=== PATIENT | female | born 1965 | race Caucasian/White ===

== ENCOUNTER 2020-09-26 11:30 | Outpatient (REF) | payer BC, SELFPAY | END 2020-09-26 11:31 | disposition home or self-care (01) | LOC: HO.WFDLDS 11:30 | PROVIDERS: Visit Provider Internal Medicine | DX: Z20.828 Contact with and (suspected) exposure to other viral communicable diseases (principal) | CPT/HCPCS: C9803; U0003 ==

== ENCOUNTER 2020-12-28 11:10 | Emergency (ER) | payer OTHER, BC, SELFPAY ==
[2020-12-28 11:51] VITALS: BP 129/75; PULSE 91; RESP 16; TEMP 36.5; O2SAT 97; BMI 29.0
--- NOTE | 2020-12-28 12:08 | ED_ITS ---
HPI - Back Pain/Injury General Chief Complaint: Back Pain/Injury Stated Complaint: back pain Time Seen by Provider: 12/28/20 11:41 Source: patient Mode of arrival: ambulatory Limitations: no limitations History of Present Illness HPI Narrative: 55 y/o female with history of chronic low back pain on chronic opiates, s/p multiple back surgeries who presents to the ER today from home with worsening low back pain for the last 1 week. She states she usually has pain on left lower back and down her left leg but it started radiating to the right buttocks. She denies injury or trauma. She is chronically on Vicoden and OxyContin. She last took her Vicoden this morning but did not take her OxyContin yet today. She is managed by her PCP and she has gotten her back surgeries in [place]. She denies urinary incontinence, saddle parestheias, LE weakness or fevers. She is able to walk with a slow but steady gait. MD elicited complaint: back pain Pertinent past history: prior back pain Onset (ago): week(s) (1) Timing: constant Severity: severe Similar Symptoms Previously: Yes Quality: sharp, aching, spasming and throbbing Location: right lower back and left lower back Radiation: left upper leg Exacerbating factors: movement and walking Relieving factors: none Context: while lifting (5 years ago at work) Associated symptoms: denies other symptoms Treatments prior to arrival: prescription analgesics Work related injury: Yes Related Data Previous Rx's Medication Instructions Recorded cyclobenzaprine 10 mg PO TID PRN #15 tab 12/28/20 lidocaine [Lidoderm] 1 patch TOPICAL DAILY #15 ea 12/28/20 prednisone 40 mg PO DAILY #10 tab 12/28/20 Allergies Allergy/AdvReac Type Severity Reaction Status Date / Time prednisone [PREDNISONE] AdvReac Unknown CIRCULATION Unverified 06/16/20 17:05 ISSUE. Review of Systems Review of Systems: Constitutional: No Fever, No Chills Cardiovascular: No Chest Pain, No SOB Respiratory: No Cough, No Sputum Gastrointestinal: No Nausea, No Vomiting, No abdominal Pain Genitourinary: No Dysuria, No Urinary Frequency, No Hematuria Musculoskeletal: + joint pain, + Myalgias Skin: No Skin Lesions, No rash Neuro: No Weakness, No Numbness, No Dizziness, No Headache PMFSH Past Medical History Attestation statement: The following information was validated with the patient. Medical History Anxiety HTN (hypertension) Surgical History (Updated 12/28/20 @ 12:00 by Bea Santana) Previous back surgery Social History Social History Smoking Status: Current every day smoker Smoked in Last 30 Days: Yes Use of substances other than those prescribed or required for medical reasons: No Advance Directives: Yes Advance Directives Information Provided: Yes Advance Directives on File: No Physical Exam Vital Signs: Vital Signs: Last Vital Signs Temp 97.7 F 12/28/20 11:51 Pulse 91 12/28/20 11:51 Resp 16 12/28/20 11:51 BP 129/75 12/28/20 11:51 Pulse Ox 97 12/28/20 11:51 Body Mass Index 29.0 Appearance: Alert. Oriented X3. Appears mildly uncomfortable. HEENT: normal inspection CVS: Normal heart rate and rhythm. Pulses normal. Respiratory: No respiratory distress. Skin: Skin warm and dry. Normal skin color. Normal skin turgor. No rashes. Extremities: atraumatic, no edema Back: left lower lumbar and right lower lumbar areas with soft tissue tenderness, +SI joint tenderness on the left. no spinal tenderness, well healed surgical scar noted. Neuro: Oriented X 3. No motor deficit. No sensory deficit. Slow but steady gait. DTR's intact bilaterally. Course Course Course Narrative: 55 y/o female presenting with acute on chronic low back pain without recent injury. She has no red flag symptoms of LBP at this time. She has not been able to go to PT due to COVID which was previously very helpful for her to prevent recurrent flares. Will start trial of muscle relaxers and steroids. No need for emergent imaging. She will follow up with her PCP. She is ambulating with a steady gait. She is stable for discharge. Discharge Plan Discharge Clinical Impression: Lumbar radiculopathy Patient Disposition: Home, Self-Care Instructions: Lumbar Radiculopathy (ED), Lower Back Exercises (ED) Additional Instructions: No bending, lifting or twisting. Rest. Use ice several times per day for 20 minutes at a time for the next 48 hours and then change to heat. Take medications as prescribed to help with pain and discomfort. Start the prednisone medication tomorrow - you were given the 1st dose in the ER today. Follow up with your Primary Care Doctor this week. If your pain worsens despite new medications or, if you develop new numbness, tingling, weakness, loss of function or incontinence call 911 or come back to the ER right away for evaluation. Prescriptions: New cyclobenzaprine 10 mg tablet 10 mg PO TID PRN (Reason: muscle spasm) Qty: 15 RF: 0 prednisone 20 mg tablet 40 mg PO DAILY Qty: 10 RF: 0 lidocaine [Lidoderm] 5 % adhesive patch,medicated 1 patch topical DAILY Qty: 15 RF: 0 Interventions: ED Discharge Assessment Last Done: 12/28/20 12:28 Discharge Date/Time: 12/28/20 12:28
[2020-12-28] MEDS: Acetaminophen 325 MG TABLET 975 MG PO (12:20)
[2020-12-28] MEDS: predniSONE 20 MG TABLET 60 MG PO (12:20)
[2020-12-28] MEDS: Ketorolac Tromethamine 60 MG/2 ML VIAL IM (12:21)
== END 2020-12-28 12:28 | disposition home or self-care (01) ==
PROVIDERS: Emergency Provider Emergency Medicine; PCP Physician Assistant Medical
DX: M54.16 Radiculopathy, lumbar region (principal); F17.200 Nicotine dependence, unspecified, uncomplicated; Z71.6 Tobacco abuse counseling; Z79.899 Other long term (current) drug therapy
CPT/HCPCS: 96372; 99283; 99284; J1885

== ENCOUNTER → 2022-01-01 13:31 | Outpatient (BNVA) | payer BC, SELFPAY | PROVIDERS: Visit Provider Internal Medicine Cardiovascular Disease | DX: R07.89 Other chest pain (principal); R00.2 Palpitations; I10 Essential (primary) hypertension | CPT/HCPCS: 93005; 99202 ==

== ENCOUNTER → 2022-01-23 11:03 | Outpatient (REF) | payer BC, SELFPAY ==
--- NOTE | 2022-01-23 11:06 | HM_ITS ---
Conclusion: 1. Patient was monitored for total period of 14 days 2. Baseline rhythm was normal sinus rhythm with average heart of 80 beats per minute 3. No significant pauses or bradycardia noted 4. Very rare ectopy is noted 5. Two brief episode of SVT longest lasting 6 beats 6. No patient reported events MTDD
== END ==
LOC: HO.CARD 11:03
PROVIDERS: PCP Physician Assistant Medical; Visit Provider Internal Medicine Cardiovascular Disease
DX: R00.2 Palpitations (principal); R07.9 Chest pain, unspecified
CPT/HCPCS: 93246

== ENCOUNTER → 2022-03-07 12:59 | Outpatient (REF) | payer BC, SELFPAY ==
--- NOTE | 2022-03-07 13:02 | CA_ITS ---
Transthoracic Echocardiogram Patient (Last, First, Middle): Meggan Haas, Gender: Female Date of : 1965 Age: 56 Procedure Date: 03/07/2022 Procedure Type: Transthoracic Echocardiogram Location: OP Height: 170.18 cm Weight: 83.92 kg BSA: 1.96 m2 Heart Rate: bpm BP: 148 / 82 mmHg Staff Internist Office Based Only: SB Referring MD: Cesar Hanks MD Symptoms: I10 - Essential (primary) hypertension Study Quality: Adequate ECG Rhythm: Sinus Conclusions: - The left ventricular systolic function is normal. The calculated ejection fraction is 57% by biplane method. - No obvious valvular pathology seen on this study. Findings Left Ventricle Normal left ventricular cavity size. The left ventricular systolic function is normal. The calculated ejection fraction is 57% by biplane method. There is no evidence of regional wall motion abnormalities. Diastolic function is normal for age. There is mild septal asymmetric hypertrophy. Right Ventricle Normal right ventricular cavity size and systolic function. Atria Both atria are normal in size. Aortic Valve There is a normal trileaflet aortic valve. There is no aortic valve stenosis. There is no aortic valve regurgitation. Mitral Valve The mitral valve appears normal. There is no mitral valve regurgitation. There is no mitral valve stenosis. Pulmonic Valve The pulmonic valve is likely normal. Tricuspid Valve Normal tricuspid valve structure. There is no tricuspid valve regurgitation. Tricuspid regurgitation envelope is inadequate for calculation of right ventricular systolic pressure. Great Vessels The aortic annulus, sinuses of valsalva, asc aorta, and aortic arch are normal in size. Venous The inferior vena cava is normal in size and collapses greater than 50% with inspiration. Pericardium/Pleural There is no evidence of pericardial effusion. Prior Study Comparison No prior study available for comparison. Recommendations, Care & Conclusions No obvious valvular pathology seen on this study. Measurements 2D Linear Measurements IVSd: 1.18 0.6-0.9/0.6-1.0 cm LVIDd: 3.82 3.9-5.3/4.2-5.9 cm LVIDd Index: 1.95 2.4-3.2/2.2-3.1 cm/m2 LVIDs: 2.73 2.0-3.6 cm LVPWd: 1.00 0.7-1.1 cm LA Diam: 2.70 2.7-3.8/3.0-4.0 cm LAIDs Index: 1.38 1.5-2.3 cm/m2 LV Mass: 166.11 67-162/88-224 g LV Mass Index: 84.75 43-95/49-115 g/m2 LVOT Diam: 1.80 3.0+(-)1.3 cm 2D Systolic Function EF 4C: 54.20 >55% EF 2C: 61.00 >55% EF BiP: 56.80 >55% Mitral Valve MV Pk E: 0.62 MV PK A: 0.67 MV Decel Time: 181.00 E/A: 0.90 E'Lateral: 10.30 E'Medial: 6.96 E/E' Med: 8.90 E/E' Lat: 6.00 PHT: 53.00 MVA PHT: 4.15 Decel Navarro: 3.44 Aortic Valve AoV Pk Jamari: 1.16 AoV Mn Jamari: 0.91 AoV VTI: 0.27 AoV Pk Grad: 5.00 Aov Mn Grad: 4.00 WINTER Cont.VTI: 1.79 LVOT LVOT Pk Jamari: 0.93 LVOT Mn Jamari: 0.65 LVOT VTI: 0.19 LVOT Pk Grad: 3.00 LVOT Mn Grad: 2.00 LVOT Diam: 1.80 LVOT Area: 2.54 Diastolic Function MV Pk E: 0.62 MV Pk A: 0.67 E/A: 0.90 E'Medial: 6.96 E/E' Med: 8.90 E' Laterial: 10.30 E/E' Lat: 6.00 Right Ventricle TAPSE (mm): 21.90 TVS' Jamari: 10.60 Great Vessels Aorta Sinus of Valsalva: 2.60 2.0-3.5 cm Ao Asc: 2.80 2.1-3.4 cm Ao Arch: 2.30 Ao Desc: 2.10 Pulmonary Valve PV Pk Jamari: 0.87 Peak PV Grad: 3.00 Updated in Other Vendor System with Status of Final José Miguel Abarca MD electronically signed on 03/10/2022 12:42:03 PM with status of Final
== END ==
LOC: HO.CARD 12:59
PROVIDERS: PCP Physician Assistant Medical; Visit Provider Internal Medicine Cardiovascular Disease
DX: R07.9 Chest pain, unspecified (principal); I10 Essential (primary) hypertension
CPT/HCPCS: 93306

== ENCOUNTER → 2022-07-19 09:55 | Outpatient (REF) | payer BC, SELFPAY ==
--- NOTE | ~2022-07-19 | NM_ITS ---
Myocardial perfusion study Indication: Chest pain to evaluate for myocardial ischemia Technique: The patient was brought in for a Lexiscan perfusion study on 07/19/2022. Patient performed low-level exercise and was injected 0.4 mg of Lexiscan intravenously. Within a minute of injection, 25 mCi of sestamibi was given intravenously. Images were obtained using the SPECT gamma camera interlaced with the gating device. Images were obtained in supine position. Resting perfusion study was performed on 07/23/2022. Patient was administered 25 mCi of sestamibi intravenously at rest. Images were then obtained in supine position. Images obtained with and without CT attenuation. Total DLP 98 mGy-cm. Images were processed with the software and compared side to side in short axis, horizontal long axis and vertical long axis views. Findings: The stress perfusion study showed non attenuated images show mildly to moderately reduced uptake in the basal inferior wall of the LV myocardium. Remainder of the LV myocardium is normally perfused. Attenuation corrected images show normal uptake of radiotracer in all segments of LV myocardium. There is suggestion of left ventricle hypertrophy. The gated study shows normal LV systolic function with calculated LVEF of 75%. LV cavity is normal in size. The gated study shows normal systolic wall thickening and contraction of segments. Resting study shows no significant change in perfusion pattern compared to stress perfusion study. Gating at rest reveals normal systolic wall motion with ejection fraction at 70%. The findings are consistent with normal myocardial perfusion. NM/NM herlinda perf SPECT rest & str Impression: 1. Myocardial perfusion imaging study shows normal myocardial perfusion 2. Gated LVEF is 70% 3. Transient ischemic dilatation not present EKG is nondiagnostic for ischemia
--- NOTE | 2022-07-19 09:58 | CA_ITS ---
Acquisition Time: 2022-07-19 10:26:54 Total Exercise Time: 00:02:00 Test Indications: CHEST PAIN, PALPS Medications: Protocol: LEXISCAN Max HR: 123 BPM 75% of Pred: 162 BPM Max BP: 164/078 mmHG Max Work Load: 1.6 METS Pharmacological stress test with Lexiscan injection, while walking slow on treadmill, without anginal symptoms, without arrythmia, with normotensive response to injection, with nondiagnostic EKG for ischemia. In recovery she was treated with aminophylline 75mg IVP to reverse Lexiscan. Nuclear images pending. Test reviewed with Dr Brown. Referred By: Cesar Hanks Overread By: LYNNE REYES
== END ==
LOC: HO.CARD 09:55
PROVIDERS: Visit Provider Internal Medicine Cardiovascular Disease
DX: R07.89 Other chest pain (principal); Z82.49 Family history of ischemic heart disease and other diseases of the circulatory system
CPT/HCPCS: 78452; 93017; A9500; J0280; J2785